=== PATIENT | male | born 1950 | race Caucasian/White ===

== ENCOUNTER 2018-06-25 09:58 | Inpatient (IN) | payer OTHER ==
[~2018-06-25] VITALS: Ht 177.8 cm; Wt 115.2 kg
[2018-06-25] MEDS ORDERED: CEFAZOLIN 2 GM IVPB PREMIX 50 ML IV ONE (10:15)
[2018-06-25] MEDS ORDERED: CELECOXIB 200 MG CAPSULE PO ONE (10:15)
[2018-06-25] MEDS ORDERED: NACL 0.9% 1,000 ML IV ONE (10:15)
[2018-06-25] MEDS ORDERED: TRANEXAMIC ACID 650 MG TABLET PO ONE (10:15)
[2018-06-25] MEDS ORDERED: GABAPENTIN 300 MG CAPSULE PO ONE (10:15)
[2018-06-25] MEDS ORDERED: oxyCODONE HCL 10 MG TAB.ER.12H PO ONE ×2 (10:15→10:19)
[2018-06-25] MEDS ORDERED: ACETAMINOPHEN 500 MG TABLET PO ONE (10:15)
[2018-06-25] MEDS ORDERED: CELECOXIB 200 MG CAPSULE ONE ×2 (10:17→20:57)
[2018-06-25] MEDS ORDERED: ACETAMINOPHEN 500 MG TABLET ONE ×2 (10:18→20:58)
[2018-06-25] MEDS ORDERED: GABAPENTIN 300 MG CAPSULE ONE (10:18)
[2018-06-25] MEDS ORDERED: TRANEXAMIC ACID 650 MG TABLET ONE (10:19)
[2018-06-25] MEDS ORDERED: POLYMYXIN 500,000/BACIT.10,000 UNITS in NS IRR 1 L IR ONE (10:59)
[2018-06-25] MEDS ORDERED: ROSU40TA PO (11:26)
[2018-06-25] MEDS ORDERED: HYDR-2489 PO (11:26)
[2018-06-25] MEDS ORDERED: TRAM1TAB33 PO (11:26)
[2018-06-25] MEDS ORDERED: LOSA100T15 PO (11:26)
[2018-06-25] MEDS ORDERED: GLIP-214 PO (11:26)
[2018-06-25] MEDS ORDERED: METF750T PO (11:26)
[2018-06-25] MEDS ORDERED: MORPHINE SULFATE 10MG/10ML PF AMP EP ONE (11:45)
[2018-06-25] MEDS ORDERED: MIDAZOLAM HCL 5 MG/5 ML VIAL IVP ONE (11:45)
[2018-06-25] MEDS ORDERED: LR 1,000 ML IV.SOLN IV ONE (11:45)
[2018-06-25] MEDS ORDERED: PROPOFOL 200MG/ 20ML VIAL (DIPRIVAN) IV ONE (11:45)
[2018-06-25] MEDS ORDERED: EPINEPHrine 1 MG/ML AMP IV ONE (11:45)
[2018-06-25] MEDS ORDERED: KETOROLAC TROMETHAMINE 30 MG VIAL IVP ONE (11:45)
[2018-06-25] MEDS ORDERED: ROPIVACAINE 0.2% (NAROPIN) PF SOLUTION 100 ML BOTTLE EP ONE (11:45)
[2018-06-25] MEDS ORDERED: ROPIVACAINE HCL/PF 5 MG/ML 0.5% 30 ML VIAL INJ ONE (11:45)
[2018-06-25] MEDS ORDERED: TRANEXAMIC ACID 1,000 MG/10 ML VIAL IV ONE (11:45)
[2018-06-25] MEDS ORDERED: ROPIVACAINE 0.2% 550 ML INJ SCH (12:44)
[2018-06-25] MEDS ORDERED: METOCLOPRAMIDE HCL 10 MG/2 ML VIAL IVP PRN (12:45)
[2018-06-25] MEDS ORDERED: DIPHENHYDRAMINE INJ 50 MG/ML VIAL IVP PRN (12:45)
[2018-06-25] MEDS ORDERED: KETOROLAC TROMETHAMINE 30 MG VIAL IVP PRN (12:45)
[2018-06-25] MEDS ORDERED: NALBUPHINE HCL 10 MG/ML AMP IVP PRN (12:45)
[2018-06-25] MEDS ORDERED: OXYCODONE/ACETAMINOPHEN *10*mg/325 mg TABLET PO PRN (12:45)
[2018-06-25] MEDS ORDERED: ONDANSETRON HCL 4 MG/2 ML VIAL IVP PRN ×2 (12:45→14:15)
[2018-06-25] MEDS ORDERED: fentaNYL CITRATE/PF 100 MCG/2 ML AMP IVP PRN ×2 (12:45)
[2018-06-25] MEDS: LR 1,000 ML IV SCH ×3 (14:10→23:49)
[2018-06-25] MEDS: ROPIVACAINE 0.2% 550 ML INJ SCH (14:10)
[2018-06-25] MEDS ORDERED: oxyCODONE HCL 5 MG TABLET PO PRN (14:15)
[2018-06-25] MEDS ORDERED: DIPHENHYDRAMINE HCL 25 MG CAPSULE PO PRN (14:15)
[2018-06-25] MEDS ORDERED: PROMETHAZINE HCL 25 MG/ML AMP IVP PRN ×2 (14:15→16:45)
[2018-06-25] MEDS ORDERED: KETOROLAC TROMETHAMINE 15 MG VIAL IVP PRN ×2 (14:15)
[2018-06-25 16:21] VITALS: BP_SYST 108
[2018-06-25] MEDS: ACETAMINOPHEN 500 MG TABLET PO SCH ×2 (17:16→21:03)
[2018-06-25] MEDS: CEFAZOLIN 1 GM IVPB PREMIX 50 ML IV SCH (17:17)
[2018-06-25] MEDS ORDERED: RIVAROXABAN 10 MG TABLET PO ONE (18:00)
[2018-06-25] MEDS: MORPHINE 4 MG/ML INJ. SYRINGE IVP PRN ×3 (18:23→23:55)
[2018-06-25] MEDS ORDERED: MORPHINE 4 MG/ML INJ. SYRINGE ONE ×3 (18:24→23:59)
[2018-06-25] MEDS ORDERED: GABAPENTIN 300 MG CAPSULE PO SCH (21:00)
[2018-06-25] MEDS ORDERED: SENNOSIDES 8.6 MG TABLET PO PRN (21:00)
[2018-06-25] MEDS: CELECOXIB 200 MG CAPSULE PO SCH (21:03)
[2018-06-25] MEDS: GABAPENTIN 300 MG CAPSULE PO SCH (21:04)
[2018-06-25] MEDS: oxyCODONE HCL 5 MG TABLET PO PRN (22:08)
[2018-06-25] MEDS ORDERED: oxyCODONE HCL 5 MG TABLET ONE (22:11)
[2018-06-25 22:33] VITALS: BP_SYST 135
[2018-06-26 01:25] VITALS: BP_SYST 130
[2018-06-26] MEDS: CEFAZOLIN 1 GM IVPB PREMIX 50 ML IV SCH ×2 (02:18→09:10)
[2018-06-26 06:41] LABS: POTASSIUM 4.6 mmol/L (3.5-5.1)
[2018-06-26 06:42] LABS: BASOPHILS % (AUTO) 0.4 % (0.0-2.0); EOSINOPHILS # (AUTO) 0.3 K/uL (0.0-0.4); EOSINOPHILS % (AUTO) 3.4 % (0.0-4.0); HEMATOCRIT 33.7 % (36-54); HEMOGLOBIN 11.4 g/dL (14.0-18.0); LYMPHOCYTES # (AUTO) 1.6 K/uL (1.0-5.5); LYMPHOCYTES % (AUTO) 18.5 % (20.5-51.5); MEAN CORPUSCULAR HEMOGLOBIN 30 pg (27-31); MEAN CORPUSCULAR HGB CONC 34 % (32-36); MEAN CORPUSCULAR VOLUME 89 fL (79.0-98.0); MONOCYTES # (AUTO) 0.8 K/uL (0.0-1.0); MONOCYTES % (AUTO) 9.4 % (1.7-9.3); NEUTROPHILS # (AUTO) 6.1 K/uL (1.8-7.7); NEUTROPHILS % (AUTO) 68.3 % (40.0-70.0); PLATELET COUNT (AUTO) 231 K/uL (130-430); WHITE BLOOD COUNT (AUTO) 8.8 K/uL (4.8-10.8)
[2018-06-26] MEDS: oxyCODONE HCL 5 MG TABLET PO PRN ×3 (06:43→17:25)
[2018-06-26] MEDS ORDERED: oxyCODONE HCL 5 MG TABLET ONE (06:46)
[2018-06-26 06:50] LABS: CALCIUM 8.9 mg/dL (8.4-11.0); CREATININE 1.09 mg/dL (0.55-1.30)
[2018-06-26 08:00] VITALS: BP_SYST 137
[2018-06-26] MEDS ORDERED: glipiZIDE XL 5 MG TAB ( GLUCOTROL XL) PO ONE (09:05)
[2018-06-26] MEDS ORDERED: CELECOXIB 200 MG CAPSULE ONE (09:06)
[2018-06-26] MEDS: MORPHINE 4 MG/ML INJ. SYRINGE IVP PRN ×2 (09:09→21:08)
[2018-06-26] MEDS: glipiZIDE XL 5 MG TAB ( GLUCOTROL XL) PO SCH (09:10)
[2018-06-26] MEDS: CELECOXIB 200 MG CAPSULE PO SCH ×2 (09:10→21:14)
[2018-06-26] MEDS: SIMVASTATIN 40 MG TABLET PO SCH (09:21)
[2018-06-26] MEDS: ACETAMINOPHEN 500 MG TABLET PO SCH ×3 (09:22→21:15)
[2018-06-26] MEDS: RIVAROXABAN 10 MG TABLET PO SCH (09:24)
[2018-06-26] MEDS: LR 1,000 ML IV SCH ×2 (11:57→21:09)
[2018-06-26 12:42] VITALS: BP_SYST 122
[2018-06-26] MEDS: ROPIVACAINE 0.2% 550 ML INJ SCH (14:10)
[2018-06-26 16:25] VITALS: BP_SYST 153
[2018-06-26] MEDS: GABAPENTIN 300 MG CAPSULE PO SCH (21:14)
[2018-06-26 23:15] VITALS: BP_SYST 149
[2018-06-27] MEDS: MORPHINE 4 MG/ML INJ. SYRINGE IVP PRN ×3 (00:08→11:49)
[2018-06-27 00:26] VITALS: BP_SYST 137
[2018-06-27] MEDS: LR 1,000 ML IV SCH (06:10)
[2018-06-27 06:29] LABS: BASOPHILS # (AUTO) 0.1 K/uL (0.0-0.2); EOSINOPHILS # (AUTO) 0.2 K/uL (0.0-0.4); LYMPHOCYTES # (AUTO) 1.7 K/uL (1.0-5.5)
[2018-06-27 06:33] LABS: BASOPHILS % (AUTO) 0.7 % (0.0-2.0); EOSINOPHILS % (AUTO) 2.5 % (0.0-4.0); HEMOGLOBIN 11.6 g/dL (14.0-18.0); LYMPHOCYTES % (AUTO) 18.5 % (20.5-51.5); MEAN CORPUSCULAR HEMOGLOBIN 30 pg (27-31); MEAN CORPUSCULAR HGB CONC 34 % (32-36); MEAN CORPUSCULAR VOLUME 89 fL (79.0-98.0); MONOCYTES # (AUTO) 0.8 K/uL (0.0-1.0); MONOCYTES % (AUTO) 8.8 % (1.7-9.3); NEUTROPHILS # (AUTO) 6.5 K/uL (1.8-7.7); NEUTROPHILS % (AUTO) 69.5 % (40.0-70.0); PLATELET COUNT (AUTO) 216 K/uL (130-430); RED BLOOD CELL COUNT(AUTO) 3.82 MIL/uL (4.2-6.2); RED CELL DISTRIBUTION WIDTH 13.1 % (9.0-15.0); WHITE BLOOD COUNT (AUTO) 9.3 K/uL (4.8-10.8)
[2018-06-27 06:49] LABS: CALCIUM 8.9 mg/dL (8.4-11.0); CREATININE 1.1 mg/dL (0.55-1.30); POTASSIUM 4.1 mmol/L (3.5-5.1)
[2018-06-27 08:15] VITALS: BP_SYST 145
[2018-06-27] MEDS: CELECOXIB 200 MG CAPSULE PO SCH (08:26)
[2018-06-27] MEDS: oxyCODONE HCL 5 MG TABLET PO PRN (08:26)
[2018-06-27] MEDS: SIMVASTATIN 40 MG TABLET PO SCH (08:26)
[2018-06-27] MEDS: glipiZIDE XL 5 MG TAB ( GLUCOTROL XL) PO SCH (08:26)
[2018-06-27] MEDS: ACETAMINOPHEN 500 MG TABLET PO SCH (08:31)
[2018-06-27] MEDS: RIVAROXABAN 10 MG TABLET PO SCH (09:50)
[2018-06-27 13:23] VITALS: BP_SYST 155
[2018-06-27] MEDS ORDERED: [UNRECOGNIZED DRUG - OTHER] PO (14:02)
[2018-06-27] MEDS ORDERED: RIVA10TA PO (14:03)
[2018-06-27] MEDS ORDERED: OXYC-128 PO (14:03)
[2018-06-27 14:04] VITALS: BP_SYST 155
== END 2018-06-27 14:50 | disposition home health service (06) | DRG 470 ==
LOC: SMU 09:58 → STU 15:48 → UNDODISIN 17:25
PROVIDERS: ADMIT Orthopaedic Surgery; ATTEND Orthopaedic Surgery
PROC: 0SRC0J9 Replacement of Right Knee Joint with Synthetic Substitute, Cemented, Open Approach (ICD-10-PCS; principal; 2018-06-25 12:00)
DX: M17.11 Unilateral primary osteoarthritis, right knee (principal); M25.761 Osteophyte, right knee; Z96.652 Presence of left artificial knee joint; E66.01 Morbid (severe) obesity due to excess calories; E11.9 Type 2 diabetes mellitus without complications; I10 Essential (primary) hypertension; Z68.36 Body mass index [BMI] 36.0-36.9, adult
CPT/HCPCS: 36415; 80048; 82962; 85025; 87081; 88305; 88311; 97039; 97110-GP; 97116-GP; 97530-GP; J0171; J0690; J1885; J2250; J2270; J2274; J2704; J2795; J3490; J7120